=== PATIENT | female | born 1940 | race Caucasian/White ===

== ENCOUNTER 2017-09-03 11:51 | Day surgery (SDC) | payer MEDICARE ==
[~2017-09-03] VITALS: Ht 167.6 cm; Wt 62.3 kg
[2017-09-03 12:25] VITALS: BP 179/105; PULSE 67; RESP 18; TEMP 97.7; O2SAT 99
[2017-09-03] MEDS ORDERED: MULTTAB67 PO (12:29)
[2017-09-03] MEDS ORDERED: CETI10 PO (12:29)
[2017-09-03] MEDS ORDERED: ZOLP10TA3 PO (12:29)
[2017-09-03] MEDS ORDERED: KRIL1000 PO (12:29)
[2017-09-03] MEDS ORDERED: ECASA81 PO (12:29)
[2017-09-03] MEDS ORDERED: CALC1TAB15 PO (12:29)
[2017-09-03 12:46] LABS: AUTOMATED NEUTROPHIL # 2.8 TH/MM3 (1.8-7.7); BASOPHIL % 0.7 % (0.0-2.0); EOSINOPHIL # 0.1 TH/MM3 (0-0.4); EOSINOPHIL % 1.8 % (0.0-4.0); HEMATOCRIT 42.3 % (35.0-46.0); HEMO FLAGS DIFF FINAL; LYMPH % 40.4 % (9.0-44.0); LYMPHOCYTE # 2.4 TH/MM3 (1.0-4.8); MEAN CELL VOLUME 100.1 FL (80.0-100.0); MEAN CORPUSCULAR HEMOGLOBIN 33.2 PG (27.0-34.0); MEAN CORPUSCULAR HGB CONC 33.2 % (32.0-36.0); MONO % 9.7 % (0.0-8.0); NEUT % 47.4 % (16.0-70.0); PLATELET COUNT 255 TH/MM3 (150-450); RED BLOOD COUNT 4.23 MIL/MM3 (4.00-5.30); RED CELL DISTRIBUTION WIDTH 14.8 % (11.6-17.2); WHITE BLOOD COUNT 5.9 TH/MM3 (4.0-11.0)
[2017-09-03 13:09] LABS: BICARBONATE 25.9 MEQ/L (21.0-32.0); POTASSIUM 4.3 MEQ/L (3.5-5.1)
--- NOTE | 2017-09-03 14:35 | PD.VS.PN ---
Pre-operative Note Pre-operative diagnosis: L LE venous insufficiency Planned procedure: L LE stab phlebectomy Interval History: Pt been feeling well since I saw her last week. No F/C/N/V Labs: Laboratory Results Test 09/03/17 12:27 Anion Gap 11 MEQ/L (5-15) Blood Urea Nitrogen 22 MG/DL (7-18) Creatinine 1.22 MG/DL (0.50-1.00) Random Glucose 117 MG/DL (74-106) Calcium Level 9.0 MG/DL (8.5-10.1) Sodium Level 141 MEQ/L (136-145) Potassium Level 4.3 MEQ/L (3.5-5.1) Chloride Level 104 MEQ/L (98-107) Carbon Dioxide Level 25.9 MEQ/L (21.0-32.0) Hematocrit 42.3 % (35.0-46.0) Hemoglobin 14.1 GM/DL (11.6-15.3) Mean Corpuscular Hemoglobin 33.2 PG (27.0-34.0) Mean Corpuscular Hemoglobin Concent 33.2 % (32.0-36.0) Mean Corpuscular Volume 100.1 FL (80.0-100.0) Mean Platelet Volume 8.1 FL (7.0-11.0) Platelet Count 255 TH/MM3 (150-450) Red Blood Count 4.23 MIL/MM3 (4.00-5.30) Red Cell Distribution Width 14.8 % (11.6-17.2) White Blood Count 5.9 TH/MM3 (4.0-11.0) Blood: none needed Orders: NPO Kefzol 2g IV OCTOR Post-operative destination: DOCU Operative site marked: Yes Consent: Informed consent has been obtained from Carolyne Gallo. I have explained the procedure in detail and discussed the risks, benefits, and potential complications. All questions have been answered. Avtar Crews MD Sep 03, 2017 14:35
[2017-09-03] MEDS ORDERED: MIDAZOLAM HCL 5 MG/5 ML VIAL ONE ×2 (14:41→15:01)
[2017-09-03] MEDS ORDERED: ceFAZolin INJ 1,000 MG VIAL ONE (14:41)
[2017-09-03] MEDS ORDERED: fentaNYL CITRATE 250 MCG/5 ML AMP ONE (14:41)
[2017-09-03] MEDS ORDERED: LIDOCAINE HCL 2% 50 ML VIAL ONE (14:48)
--- NOTE | 2017-09-03 15:31 | HHI.PR ---
Immediate Post Op Note Procedure Date: Sep 03, 2017 Pre Op Diagnosis: L LE venous insufficiency Post Op Diagnosis: L LE venous insufficiency Surgeon: Avtar Crews [facility] Specialists(s): none Procedure: LE stab phlebectomy (15 incisions) Findings: successful phlebectomy Complications: none Specimen(s) removed: none for pathology Estimated blood loss: 20mL Anesthesia: MAC Drains: None Fluids: 300mL IVF Patient to: Other (DOCU) Avtar Crews MD Sep 03, 2017 15:31
--- NOTE | 2017-09-03 15:39 | CATHPROC ---
[facility] HIS Report Study Information Admission Scheduled Start Study Start Sep 03 2017 11:51AM 09/03/2017 Sep 03 2017 2:39PM [place] [facility] Cath Endovascular Study Admit Source Facility Department Other [facility] Physician and Clinical Staff Initial Avtar Thrasher Shading Painter Nicolle Jackson,RN Recorder Arian Multani,RT(R) Millicent Jason,RT(R) (BS) History: Risk Factors Family History of Hypertension Dyslipidemia Previous [place] Previous Heart Failure Premature CAD Yes No No No No Prior Valve Prior PCI Prior CABG Surgery No No No Cerebrovascular Peripheral Artery Chronic Lung On Dialysis Diabetes Disease Disease Disease No No No No No History: Other Current Smoker Method Quit Packs a Day Years Used Pack Years No Cigarettes 3 Years Ago 1 30 30 Labs Hgb (g/dl) Hct (%) WBC (l/cumm) Platelets (thousands) 11.60-17.00 35.00-51.00 4.00-11.00 150.00-450.00 14.1 42.3 5.9 255 Glucose (mg/dl) BUN (mg/dl) Creatinine (mg/dl) BUN:Creatinine (1:x) 74.00-106.00 7.00-18.00 0.50-1.30 10.00-20.00 117 22 1.2 18.3 Na (meq/l) K (meq/l) 136.00-145.00 3.50-5.10 141 4.3 CPK-MB (ng/ML) 0.50-3.60 Not Drawn Medication Medication Total Dose (Bolus/Oral) Medication Total Dosage/Unit 1% XYLOCAINE 2 mL FENTANYL 150 mcg VERSED 5 mg Medications (Bolus/Oral) Medication Time Given Dosage/Unit Administered By Reason VERSED 09/03/2017 2:53:39 PM 2 mg Nicolle Jackson 2 mg VERSED given in lab by Nicolle Jackson, RN via Peripheral IV. Ordered by Avtar Crews. FENTANYL 09/03/2017 2:54:45 PM 50 mcg Nicolle Jackson 50 mcg FENTANYL given in lab by Nicolle Jackson, RACHEAL via Peripheral IV. Ordered by Avtar Crews. 1% XYLOCAINE 09/03/2017 2:57:06 PM 2 mL Avtar Crews 2 mL 1% XYLOCAINE given in lab by Avtar Crews via Subcutaneous. Ordered by Avtar Crews. multipl e areas on left leg. VERSED 09/03/2017 2:57:51 PM 2 mg Adamy, Nicolle 2 mg VERSED given in lab by Nicolle Jackson, RACHEAL via Peripheral IV. Ordered by Avtar Crews. FENTANYL 09/03/2017 2:58:13 PM 50 mcg Adamy, Nicolle 50 mcg FENTANYL given in lab by Nicolle Jackson, RACHEAL via Peripheral IV. Ordered by Avtar Crews. VERSED 09/03/2017 3:00:31 PM 1 mg Adamy, Nicolle 1 mg VERSED given in lab by Nicolle Jackson, RACHEAL via Peripheral IV. Ordered by Avtar Crews. FENTANYL 09/03/2017 3:01:48 PM 50 mcg Adamy, Nicolle 50 mcg FENTANYL given in lab by Nicolle Jackson, RACHEAL via Peripheral IV. Ordered by Avtar Crews. Medication (Drip) Medication Time Given Dosage/Unit Concentration/Unit Diluent (ml) Solution ANCEF 09/03/2017 2:55:25 PM 2 g 2 g ANCEF given in lab by Nicolle Jackson, RACHEAL via Peripheral IV. Ordered by Avtar Crews. IV Solutions 09/03/2017 2:55:28 PM 0 mL (IV) 500 NaCl .9 Patient arrived on IV Solutions given by Avtar Crews in Left Antecubital via Peripheral IV. Pump/D rip Flow = 20 ml/hr using NaCl .9. Ordered by Avtar Crews. Initial Case Assessment Cardiovascular HR Rhythm NIBP Chest Pain 70 sr 177/89 0 Edema Present Skin color Skin None Normal Warm Dry Neurological State Oriented to time-place- Alert Moves all extremities person Respiration - General Respiration Rate SpO2 (%) O2 (lpm) (B/min) 18 100 0 Chronological Log Time Study Chronological Log 14:39:10 Patient arrived via Bed. 14:39:12 Patient Name, D.O.B, / Armband Verified By R.N. 14:39:13 Consent signed by the physician and the patient and verified by the [facility] staff. 14:39:14 Pre-op and post- op instructions given; patient acknowledges understanding of instructions. 14:40:30 MD arrived. Vitals capture started with the following parameters, Patient=Adult, Interval=5 min, Initial Pr tykyhx=796 mmHg, 14:44:36 Deflation Rate=5 mmHg, Cuff placed on Right Arm 14:45:53 MIFJ=206/89 mmhg, SpO2=98.0 %, New=2 14:50:17 HR=64 bpm, YRXM=145/88 mmhg, KuM0=476.0 %, Resp=9 B/min, New=2 14:53:21 Left leg being prepped with 2% chlorhexidine, and draped after a 3 min. waiting time. 14:53:39 2 mg VERSED given in lab by Nicolle Jackson, RN via Peripheral IV. Ordered by Godfrey Crews 14:54:18 Reference ECG taken 14:54:45 50 mcg FENTANYL given in lab by Nicolle Jackson, RN via Peripheral IV. Ordered by Brooke Crews. 14:55:16 A # 20 IV was noted in the Antecubital (left). Grade = 0 14:55:22 HR=66 bpm, MANP=131/75 mmhg, GxV3=586.0 %, Resp=14 B/min, New=2 14:55:25 2 g ANCEF given in lab by Nicolle Jackson, RN via Peripheral IV. Ordered by Avtar Crews. Patient arrived on IV Solutions given by Avtar Crews in Left Antecubital via Peripheral IV. Pump/Drip Flow = 20 ml/hr 14:55:28 using NaCl .9. Ordered by Avtar Crews. 14:55:48 History and physical on the chart or being dictated. Assessment: Initial Case, HR=70 BPM, Rhythm=sr, DYAL=648/89 mmhg, Chest Pain=0, Edema=None, Col or=Normal, Skin = Warm, Dry 14:55:55 Neurological: State=Alert, Ox3, MORA Respiration: Resp=18 B/min, UnZ0=206 %, O2=0 lpm Time Out. Correct patient, correct procedure, correct physician, power injector not loaded with contrast with surgical 14:56:49 team present. Time Out Concurred by MD and individual staff in procedure. 14:57:02 Case Start 2 mL 1% XYLOCAINE given in lab by Avtar Crews via Subcutaneous. Ordered by Avtar Crews. m ultiple areas on 14:57:06 left leg. 14:57:51 2 mg VERSED given in lab by Nicolle Jackson, RN via Peripheral IV. Ordered by Godfrey Crews 14:58:13 50 mcg FENTANYL given in lab by Nicolle Jackson, RN via Peripheral IV. Ordered by Brooke Crews 14:58:49 Stab Phlebectomy in progress by Dr. Crews on Left leg. 15:00:19 HR=69 bpm, RSDI=906/55 mmhg, SpO2=98.0 %, Resp=6 B/min, New=2 15:00:31 1 mg VERSED given in lab by Nicolle Jackson, RACHEAL via Peripheral IV. Ordered by Navarro Crews. 15:01:48 50 mcg FENTANYL given in lab by Nicolle Jackson, RACHEAL via Peripheral IV. Ordered by Avtar Crews. 15:05:08 HR=71 bpm, NIBP=86/52 mmhg, SpO2=86.0 %, Resp=31 B/min, New=2 15:10:16 Procedure is still in progress. 15:10:42 HR=71 bpm, KGJF=635/61 mmhg, SpO2=97.0 %, Resp=3 B/min, New=2 15:15:08 HR=70 bpm, AGDU=608/61 mmhg, SpO2=98.0 %, Resp=5 B/min, New=2 15:20:16 HR=73 bpm, NIBP=82/42 mmhg, SpO2=94.0 %, Resp=5 B/min, New=2 15:25:06 HR=74 bpm, NIBP=93/51 mmhg, SpO2=96.0 %, Resp=5 B/min, New=2 Case End 15:26:15 15:26:21 Incision sites sutured closed and flushed with peroxide. 15:28:42 Kerlex and eva bandage wrapped around patient's left leg. 15:30:10 HR=72 bpm, NIBP=94/53 mmhg, SpO2=98.0 %, Resp=7 B/min, New=2 15:35:09 HR=79 bpm, CLFD=646/53 mmhg, SpO2=94.0 %, Resp=8 B/min, New=2 15:37:59 Patient being returned to the DOCU. End Study - Contrast Media Used In Study Contrast Total Opened (mL) Total Used (mL) Total Wasted (mL) Omnipaque 0 0 0 End Study - Maximum Contrast Load Max Contrast Load (mL) 272.2 End Study - Radiation Exposure Fluoro Time (minutes) 0.0 End Study - Patient Disposition Complications Transferred To Telemetry Bed
[2017-09-03] MEDS ORDERED: MORPHINE SULFATE 4 MG/ML INJ IV PRN (15:45)
--- NOTE | 2017-09-03 19:49 | MP ---
cc: AVTAR CREWS DATE OF SURGERY 09/03/17 PRIMARY DIAGNOSIS Venous insufficiency, left lower extremity. POSTOPERATIVE DIAGNOSIS Venous insufficiency, left lower extremity. PROCEDURE Left lower extremity stab phlebectomy (15 incisions). ATTENDING PHYSICIAN Avtar Crews MD ANESTHESIA Local with sedation. INDICATIONS Mrs. Gallo is an elderly female with left lower extremity venous insufficiency. She has tried and failed compression therapy and she is taken to the operating room for a stab phlebectomy as she has no truncal insufficiency. DESCRIPTION OF PROCEDURE Informed consent was obtained from the patient. She was taken to the operating room and placed supine on the operating table. An appropriate time-out was taken to ensure the patient's identity, operative site, and planned procedure. The administration of 2 grams of Ancef was initiated prior to skin incision, will be discontinued after single preoperative dose. Everyone in the room agreed to time-out and we proceeded. Her left leg was prepped and draped and the varicosities were infiltrated with Marcaine and the varicosities were all stab phlebectomized with an 11 blade and hemostats. Manual pressure was held for hemostasis. 5-0 chromic was used to reapproximate the wounds. In total 15 incisions were made. There were no complications. I was present and scrubbed and performed the entire procedure. At the conclusion of the case the patient was then wrapped in a Kerlix and Ayo bandage and taken to the recovery room in stable condition. Avtar Crews MD RJF/EO /6:44 PM /7:41 PM
== END 2017-09-03 17:07 | disposition home or self-care (01) ==
LOC: HDIC 11:51 → HDOC 11:51
PROVIDERS: ATTEND Surgery
DX: I87.2 Venous insufficiency (chronic) (peripheral) (principal); I10 Essential (primary) hypertension
CPT/HCPCS: 37765; 80048; 85025; 99152; 99153; J0690; J2250; J3010